=== PATIENT | female | born 2000 | race Caucasian/White ===

== ENCOUNTER 2020-03-01 13:21 | Emergency (ER) | payer SELFPAY ==
[2020-03-01 13:22] VITALS: BP 123/78; PULSE 80; RESP 14; TEMP 37.5; O2SAT 98; BMI 22.8
--- NOTE | 2020-03-01 13:37 | ED.VISSUMM ---
- ER Visit Summary Date of Service: 03/01/20 Chief Complaint: Diarrhea with a small amount of blood History of Present Illness: The patient is a 19 F history of anxiety. 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 States she ate some fair food the other day a walking taco. Last night had nausea and multiple episodes of watery diarrhea. Small amount of blood. No hematemesis. No melena. No black stool. No localizing abdominal pain just some cramping. She denies any dysuria. Last menstrual period was about 3 weeks ago. She is concerned she got food poisoning. No recent antibiotics. No exposure anyone is been ill that she is aware of. Denies other complaints. Physical Examination: Well-appearing 19-year-old female coming by her mom. Vital signs stable afebrile. H EENT exam moist with membranes. Unremarkable. Neck nontender. No lymphadenopathy. Lungs clear to auscultation bilaterally. Heart regular rhythm rate about 80 no murmur. Abdomen soft nontender normal bowel sounds no peritoneal signs. Nondistended. No signs of obstruction. Both the right upper and right lower quadrants are unremarkable. No localizing tenderness. No signs of appendicitis. Extremities moves all 4. Calves nontender. Skin no rashes. Back nontender. Neurologically she is awake and alert moving all 4 extremities. Test Results: None Emergency Department Course and Treatment: Acute episode of diarrhea a viral gastroenteritis versus food poisoning. Fluids and rest. Increase diet slowly. Follow-up if not improving. Treatment Plan: Fluids and rest. [place] diet increase slowly. Follow-up if not improving. Return if worse. Disposition: Discharge Impression: Acute viral illness This note was generated with [employer] dictation software. It may contain incorrect words, spelling, and punctuation that were not noted in review of the chart prior to signing ED Disposition - Plan for ED Patient: Referrals: Yusra Charles MD [Primary Care Provider] -
--- NOTE | 2020-03-01 13:39 | ED.DEP ---
ED Disposition - Plan for ED Patient: Disposition: Home or Assisted Living Instructions: Treating Diarrhea, ED Food Poison Or Gastroenteritis Referrals: Yusra Charles MD [Primary Care Provider] - 3-5 Days if not improving Additional Instructions: Plenty of fluids and rest. Increase diet slowly as tolerated. Follow-up with your doctor if not improving in 3 days. If you have continued diarrhea or worse bleeding. Or bleeding does not resolve. Tylenol and/or Motrin for any pain.
== END 2020-03-01 13:57 | disposition home or self-care (01) ==
LOC: ED 13:51
PROVIDERS: Emergency Provider Emergency Medicine
DX: B34.9 Viral infection, unspecified (principal); F41.9 Anxiety disorder, unspecified; Z87.74 Personal history of (corrected) congenital malformations of heart and circulatory system
CPT/HCPCS: 99282